=== PATIENT | male | born 1950 | race Caucasian/White ===

== ENCOUNTER 2018-07-10 15:41 | Emergency (ER) | payer OTHER ==
[2018-07-10 15:58] VITALS: BP 142/85
--- NOTE | 2018-07-10 16:03 | UC ---
Laceration HPI - HPI Summary HPI Summary: A 68 y/o male presents to ED c/o cut on left forearm on jose armando nail. As per triage, "c/o being scratched by a jose armando nail on left forearm at home yesterday. Requests tetanus". According to the patient, he accidentally cut himself last night (on the left forearm) on a jose armando nail when he was taking sheet rock off the wall. He stated that he missed the jose armando nail and in the process of pulling another nail out the wall, he jerked back and hit the jose armando nail. He noted that it is "not really a bad wound". He cleaned the wound with soap and water last night and put some ointment/cream on the area. He noted that he has not had his Tetnus shot in a while. Patient indicated that he has no other injuries or complaints at this time. PMHx of prostate cancer, [place] (couple years ago), denies DM. FHx of heart issues. SHx of non-smoker. - History Of Current Complaint Chief Complaint: UCLaceration Stated Complaint: NAIL PUNCTURE ON ARM Time Seen by Provider: 07/10/18 15:54 Hx Obtained From: Patient Laceration Location: Arm - Left Forearm Mechanism Of Injury: Sharp Trauma Onset/Duration: Sudden Onset, Still Present Pain Intensity: 0 Pain Scale Used: 0-10 Numeric Aggravating Factors: Nothing - Allergies/Home Medications Allergies/Adverse Reactions: Allergies Allergy/AdvReac Type Severity Reaction Status Date / Time azithromycin [From Zithromax] Allergy Rash Verified 07/10/18 15:59 ciprofloxacin [From Cipro] Allergy Unknown Verified 07/10/18 16:00 Reaction Details Penicillins Allergy Anaphylatic Verified 07/10/18 15:59 Shock prochlorperazine Allergy See Comment Verified 07/10/18 15:59 [From Compazine] Home Medications: Home Medications Degarelix Acetate* [Firmagon*] 80 mg IM MONTHLY 07/10/18 [History Confirmed 03/22] Tamsulosin CAP* [Flomax CAP*] 1 tab PO DAILY 07/10/18 [History Confirmed ] PMH/Surg Hx/FS Hx/Imm Hx Endocrine History: Diabetes - NEGATIVE Cardiovascular History: Myocardial Infarction - POSITIVE Cancer History: Prostate Cancer - Surgical History Surgical History: Yes Surgery Procedure, Year, and Place: Hernia, Tonsils, [place] - Family History Known Family History: Positive: Other - POSITIVE: Heart issues - Social History Alcohol Use: None Substance Use Type: None Smoking Status (MU): Never Smoked Tobacco - Immunization History Most Recent Tetanus Shot: more then 10 years Review of Systems Constitutional: Negative Skin: Other - POSITIVE: Laceration on left forearm. Eyes: Negative ENT: Negative Respiratory: Negative Cardiovascular: Negative Gastrointestinal: Negative Genitourinary: Negative Motor: Negative Neurovascular: Negative Musculoskeletal: Negative Neurological: Negative Psychological: Negative Is Patient Immunocompromised?: No All Other Systems Reviewed And Are Negative: Yes Physical Exam - Summary Physical Exam Summary: Appearance: Well appearing, no pain distress Skin: Skin tear on the dorsal surface of proximal forearm. Controlled bleeding. Slight ecchymosis. 1.5 cm in length. Head/face: normal Eyes: EOMI, LULY ENT: normal Neck: supple, non-tender Respiratory: CTA, breath sounds present Cardiovascular: RRR, pulses symmetrical Abdomen: non-tender, soft Bowel Sounds: present Musculoskeletal: normal, strength/ROM intact Neuro: normal, sensory motor intact, A&Ox3 Triage Information Reviewed: Yes Vital Signs: Initial Vital Signs Temp 98.8 F 07/10/18 15:55 Pulse 76 07/10/18 15:55 Resp 12 07/10/18 15:55 BP 142/85 07/10/18 15:55 Pulse Ox 100 07/10/18 15:55 Vital Signs Reviewed: Yes Laceration Course/Dx - Course/Dx Course Of Treatment: Patient with history of prostate cancer with skin tear that is one-day old on his left forearm. No evidence for infection. Here for a tetanus shot. This was provided. Dressed with bacitracin and a Band-Aid. We will leave open. - Differential Dx - Laceration/Wound Provider Diagnoses: SKIN TEAR Discharge - Sign-Out/Discharge Documenting (check all that apply): Patient Departure - DISCHARGE All imaging exams completed and their final reports reviewed: No Studies - Discharge Plan Condition: Good Disposition: HOME Patient Education Materials: Skin Tear (ED) Referrals: [facility] [Outside] Additional Instructions: Clean with soap and water. Dress with bacitracin ointment 3 times a day. Return with concerns for infection, worse or other concerns. Expect several days of soreness in the area of the tetanus shot. - Billing Disposition and Condition Condition: GOOD Disposition: Home - Attestation Statements Document Initiated by Lulu: Yes Documenting Scribe: Matthew Ruiz Provider For Whom Lulu is Documenting (Include Credential): Tez Cortez MD Scribe Attestation: Matthew Montgomery, scribed for Tez Cortez MD on 07/10/18 at 1615. Scribe Documentation Reviewed: Yes Provider Attestation: The documentation as recorded by the Matthew blanchard accurately reflects the service I personally performed and the decisions made by me, Tez Cortez MD
[2018-07-10] MEDS ORDERED: Tetan/Diph/Pertus SYR(Tdap)* 0.5 ML SYR(BOOSTRIX) use SYR IM ONE (16:07)
== END 2018-07-10 16:18 | disposition home or self-care (01) ==
LOC: UCEAST 15:41
DX: S51.812A Laceration without foreign body of left forearm, initial encounter (principal); W45.0XXA Nail entering through skin, initial encounter; Y93.9 Activity, unspecified; Y92.009 Unspecified place in unspecified non-institutional (private) residence as the place of occurrence of the external cause; Z23 Encounter for immunization; Z85.46 Personal history of malignant neoplasm of prostate; Z88.1 Allergy status to other antibiotic agents; Z88.0 Allergy status to penicillin; Z88.8 Allergy status to other drugs, medicaments and biological substances
CPT/HCPCS: 90471; 90715; 99201; G0463